=== PATIENT | female | born 1995 | race Caucasian/White ===

== ENCOUNTER 2019-04-29 11:09 | Inpatient (IN) | payer BC ==
[~2019-04-29] VITALS: Ht 162.6 cm; Wt 107.3 kg
[2019-05-26] VITALS (64 sets, daily range): BP systolic 105–194; BP diastolic 58–87; PULSE 64–131; TEMP 97.4–98.1
--- NOTE | 2019-05-26 07:10 | NUR ---
Pt arrives on unit ambulatory with spouse for induction of labor. Changed into a clean gown. EFM and toco applied. VSS. Denies regular ctx, LOF, vaginal bleeding and reports GFM. IV started in LH. Labs drawn. LR infusing. Admission assessment completed. Consents signed. Pt updated on POC. Safety reviewed. Bed locked in low position. Call light within reach. No questions or concerns at this time.
[2019-05-26] MEDS ORDERED: PRENATAL MVI (07:20)
[2019-05-26] MEDS ORDERED: CLARITIN 1010 MG/TAB PO (07:21)
[2019-05-26] MEDS ORDERED: NEXIUM 20MG20 MG PO (07:21)
[2019-05-26 07:55] LABS: BASO # 0.1 (0.0-0.2); BASO % 0.5 % (0.0-2.0); EOS # 0.1 (0.0-0.7); EOS % 0.7 % (0-4.0); GRAN # 7.5 (1.4-6.5); GRAN % 65.8 % (42.2-75.2); HEMOGLOBIN 11.5 g/dl (12.5-16.0); LYMPH # 3.1 (1.2-3.4); LYMPH % 27.4 % (20.0-51.0); MEAN CELL VOLUME 87 fl (80.0-100.0); MEAN CORPUSCULAR HEMOGLOBIN 29 pg (27.0-31.0); MEAN CORPUSCULAR HGB CONC 33 g/dl (33.0-37.0); MEAN PLATELET VOLUME 11.3 fl (7.4-10.4); MONO # 0.6 (0.1-0.6); PLATELET COUNT 235 K/mm3 (130-400); RED BLOOD COUNT 3.96 M/mm3 (4.10-5.30); REDCELL DISTRIBUTION WIDTH-CV 13.7 % (11.5-14.5)
[2019-05-26 07:57] LABS: HEMATOCRIT 34.5 % (37.0-47.0)
--- NOTE | 2019-05-26 08:10 | NUR ---
Dr. Cardoza at bedside. Attempted AROM performed per provider. No fluid noted. SVE /-2. Pericare performed. Pt updated on POC. Safety reviewed. No questions or concerns at this time.
--- NOTE | 2019-05-26 11:04 | NUR ---
Dr. Cardoza at bedside. Performs AROM of clear fluid. SVE per provider /2. Pericare performed. Pt updated on POC. No questions or concerns at this time.
--- NOTE | 2019-05-26 20:40 | NUR ---
PT COMPLETE/0, REPOSITIONED TO HIGH FOWLERS TO LABOR DOWN.
--- NOTE | 2019-05-26 21:40 | NUR ---
PT BEGINS PUSHING WITH THIS NURSE.
--- NOTE | 2019-05-26 22:30 | NUR ---
LUCINA POZO'Joesph, 100MLS OUT
[2019-05-27] VITALS (11 sets, daily range): BP systolic 100–141; BP diastolic 59–74; PULSE 78–127; TEMP 97.4–98.8
--- NOTE | 2019-05-27 00:15 | NUR ---
2340- DR. CRUMP IN ROOM INTERMITTENTLY TO EVALUATE PT. 0008- SPONTANEOUS VAGINAL DELIVERY OF VIABLE BABY BOY, CORD CLAMPED AND CUT BY DR. CRUMP. BABY TO WARMER FOR ASSESSMENT, BABY CARES ASSUMED BY Christin HERNANDEZ RN. 0011- SPONTANEOUS DELIVERY OF INTACT PLACENTA. PITOCIN STARTED PER PROTOCOL. 0012- DR. CRUMP STRAIGHT CATHS PT, 50 MLS OUT.
--- NOTE | 2019-05-27 09:11 | NUR ---
Family resting; Professional Fighter left card of congratulations for the of their son and information regarding the availability of spiritual care at [facility].
--- NOTE | 2019-05-28 06:20 | NUR ---
REPORT RECEIVED FROM OFF GOING RN, CHANDANA Mcfarlane CARE TAKEN OVER BY THIS RN.
[2019-05-28 07:04] VITALS: BP 133/73; PULSE 76; TEMP 97.8
--- NOTE | 2019-05-28 07:04 | NUR ---
VS/assessment completed. D/C board updated. POC discussed.
[2019-05-28] MEDS ORDERED: MOTRIN 800800 MG/TAB PO (08:56)
== END 2019-05-28 12:00 | disposition home or self-care (01) | DRG 807 ==
LOC: LDR 05-26 06:51 → OB 05-27 06:51 → LDRO 05-29 11:09 → EDSTATUS 05-29 15:23
PROVIDERS: ADMIT Obstetrics & Gynecology
PROC: 10907ZC Drainage of Amniotic Fluid, Therapeutic from Products of Conception, Via Natural or Artificial Opening (ICD-10-PCS; principal; 2019-05-26)
PROC: 10E0XZZ Delivery of Products of Conception, External Approach (ICD-10-PCS; 2019-05-27)
PROC: 0W8NXZZ Division of Female Perineum, External Approach (ICD-10-PCS; 2019-05-27)
DX: O99.62 Diseases of the digestive system complicating childbirth (principal); Z37.0 Single live birth; O99.214 Obesity complicating childbirth; E66.9 Obesity, unspecified; Z3A.39 39 weeks gestation of pregnancy; K21.9 Gastro-esophageal reflux disease without esophagitis
CPT/HCPCS: J2590; J7120

== ENCOUNTER 2020-04-11 17:19 | Emergency (ER) | payer SELFPAY ==
[~2020-04-11] VITALS: Ht 167.6 cm; Wt 96.4 kg
[~2020-04-11 17:19] MED LIST: CLARITIN 1010 MG/TAB PO; MOTRIN 800800 MG/TAB PO; NEXIUM 20MG20 MG PO; PRENATAL MVI
[2020-04-11 20:39] VITALS: BP 148/74; PULSE 84; TEMP 98.6
== END 2020-04-11 20:41 | disposition home or self-care (01) ==
LOC: COL.ER 17:19
DX: S90.32XA Contusion of left foot, initial encounter (principal); S90.111A Contusion of right great toe without damage to nail, initial encounter; W20.8XXA Other cause of strike by thrown, projected or falling object, initial encounter; Y92.59 Other trade areas as the place of occurrence of the external cause; Y99.0 Civilian activity done for income or pay